=== PATIENT | male | born 2000 | race Caucasian/White ===

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

== ENCOUNTER 2023-11-15 15:50 | Emergency (ER) | payer MEDICAID ==
[~2023-11-15] VITALS: Ht 172.7 cm; Wt 98.2 kg
[2023-11-15 15:55] VITALS: BP 134/80; PULSE 91; TEMP 98.2; O2SAT 97
[2023-11-15] MEDS ORDERED: ketorolac trometh. 30mg/ml inj. IM ONE (16:25)
[2023-11-15] MEDS ORDERED: AMOX-106 PO (16:27)
[2023-11-15] MEDS ORDERED: IBUP-1984 PO (16:27)
[2023-11-15 16:55] VITALS: RESP 16
[2023-11-15] MEDS: ketorolac tromethamine 15mg/ml inj. IM ONE (16:55)
== END 2023-11-15 19:28 | disposition home or self-care (01) ==
LOC: ER 15:50
DX: K02.9 Dental caries, unspecified (principal); F15.10 Other stimulant abuse, uncomplicated; Z79.1 Long term (current) use of non-steroidal anti-inflammatories (NSAID); Z79.2 Long term (current) use of antibiotics
CPT/HCPCS: 96372; 99283; J1885

== ENCOUNTER 2024-08-04 17:13 | Emergency (ER) | payer MEDICAID ==
[~2024-08-04] VITALS: Ht 165.1 cm; Wt 98.8 kg
[2024-08-04 17:48] VITALS: BP 130/77; PULSE 85; RESP 18; TEMP 97.8; O2SAT 98
== END 2024-08-04 21:09 | disposition home or self-care (01) ==
LOC: ER 17:13
DX: R04.0 Epistaxis (principal); F15.90 Other stimulant use, unspecified, uncomplicated; Z20.822 Contact with and (suspected) exposure to COVID-19
CPT/HCPCS: 36415; 87502; 87503; 87811; 99281; 99283